=== PATIENT | female | born 1965 | race Caucasian/White ===

== ENCOUNTER → 2024-03-16 09:48 | Outpatient (REF) | payer BC, SELFPAY | LOC: MRI 3T 09:48 | PROVIDERS: ATTENDING PHYSICIAN Anesthesiology; FAMILY PHYSICIAN Nurse Practitioner | DX: M54.12 Radiculopathy, cervical region (principal); M54.16 Radiculopathy, lumbar region | CPT/HCPCS: 72141; 72148 ==

== ENCOUNTER → 2024-09-10 14:43 | Outpatient (REF) | payer BC, SELFPAY | LOC: EMG 14:43 | PROVIDERS: ATTENDING PHYSICIAN Psychiatry & Neurology Neurology; FAMILY PHYSICIAN Nurse Practitioner | DX: M54.12 Radiculopathy, cervical region (principal) | CPT/HCPCS: 95886; 95911 ==